=== PATIENT | female | born 1960 | race Caucasian/White ===

== ENCOUNTER → 2022-11-09 13:57 | Outpatient (BNVA) | payer OTHER, SELFPAY | PROVIDERS: PCP Nurse Practitioner; Visit Provider Specialist | DX: G56.03 Carpal tunnel syndrome, bilateral upper limbs (principal) | CPT/HCPCS: 95910; 95912 ==

== ENCOUNTER 2024-03-28 10:58 | Emergency (ER) | payer OTHER, SELFPAY ==
[2024-03-28 11:01] VITALS: BP 134/82; PULSE 89; RESP 16; TEMP 36.7; O2SAT 97
--- NOTE | 2024-03-28 11:05 | ECG_ITS ---
[facility] Test Date: 2024-03-28 Pat Name: Humera Lozada Department: Room: Gender: Female Hemodialysis Charge Nurse: : 1960 Requested By: Nghia Carrera Order Number: [id number] Raman MD: Chad Pearson M.D. Measurements Intervals [place] Rate: 84 P: 41 CA: 126 QRS: 43 QRSD: 70 T: 37 QT: 324 QTc: 383 Interpretive Statements SINUS RHYTHM LOW QRS VOLTAGE IN PRECORDIAL LEADS [QRS DEFLECTION < 1.0 mV IN CHEST LEADS] No previous ECG available for comparison Electronically Signed On 03-28-2024 22:56:06 CDT by Chad Pearson M.D. [email or web address]/store/NU/[id number] f
--- NOTE | 2024-03-28 11:20 | CT_ITS ---
WS: [id number] CT HEAD NONCONTRAST HISTORY: acute neuro changes TECHNIQUE: Contiguous axial imaging performed through the brain in 2.5 mm imaging. Bone and soft tiss ue windows. Sagittal and coronal reformats reviewed. All CT scans at [facility] use at least one of these dose optimization techniques: automated exposure control; mA and/or kV adjustment per pa tient size (includes targeted exams where dose is matched to clinical indication); or iterative recon struction. DLP: 989.55 mGy.cm COMPARISON: None available. No acute intracranial hemorrhage, midline shift or mass effect. Minimal atrophy and small vessel ischemic disease. No acute infarct or loss of rush-white matter diff erentiation. Ventricles: Normal size with no hydrocephalus. No inferior displacement of the cerebellar tonsils. Paranasal sinuses: As visualized are clear. Mastoid air cells: Well pneumatized. Calvarium and scalp: Skull is intact with no soft tissue edema or swelling. CT/CT head wo con* [id number] IMPRESSION: 1. No acute intracranial hemorrhage or edema. 2. Mild atrophy and mild small vessel ischemic disease.
[2024-03-28 11:24] VITALS: BP 134/84; PULSE 87; RESP 18; O2SAT 99
--- NOTE | 2024-03-28 11:32 | PC.PHAR ---
PT IS [facility] FOR [facility] LIST 03/28/24 11:30AM
[2024-03-28 11:38] LABS: Basophils # 0.1 10^3/uL (0.0-0.1); Basophils % 1.2 %; Eosinophils # 0.2 10^3/uL (0.0-0.8); Eosinophils % 2.7 %; Hematocrit 39.8 % (36-47); Lymphocytes # 2.1 10^3/uL (0.8-4.8); Lymphocytes % 24.2 %; Mean Corpuscular HGB Conc 32.7 g/dL (30-55); Mean Corpuscular Hemoglobin 31.9 pg (27-33); Mean Corpuscular Volume 97.5 fl (85-98); Mean Platelet Volume 9.4 fL (7.4-10.4); Monocytes # 0.5 10^3/uL (0.2-0.9); Neutrophils # 5.78 10^3/uL (1.8-7.7); Neutrophils % 65.6 %; Nucleated Red Blood Cells % 0 %; Platelet Count 275 10^3/cmm (157-399); Red Blood Count 4.08 10^6/uL (3.85-5.65); Red Cell Distribution Width 12.4 % (12.1-15.1); White Blood Count 8.83 10^3/uL (3.29-11.43)
[2024-03-28 11:54] LABS: Alanine Aminotransferase 18 U/L (0-33); Albumin Level 3.8 g/dL (3.5-5.2); Alkaline Phosphatase 107 U/L (35-105); Anion Gap 15.3 (5-19); Aspartate Amino Transferase 12 U/L (0-32); Blood Urea Nitrogen 13 mg/dL (8-23); Calcium 8.7 mg/dL (8.5-10.5); Carbon Dioxide 25 mmol/L (22-29); Chloride 103 mmol/L (98-107); Creatinine Clr Calc Pharmacy 79.0457; Glomerular Filtration Rate 72.7 mL/min (90-130); Glucose 105 mg/dL (65-115); Osmolality Calculated 288 mOsm/kg (285-295); Potassium 4.3 mmol/L (3.5-5.1); Sodium 139 mmol/L (136-145); Total Bilirubin 0.2 mg/dL (0.15-1.2); Total Protein 6.8 g/dL (6.6-8.7)
[2024-03-28 11:59] LABS: Add Urine Microscopic? YES; Bilirubin Urine Neg (Negative); Blood Urine 2+ (Negative); Glucose Urine UA Norm (Normal); Ketones Urine Negative (Negative); Leukocyte Esterase Urine Negative (Negative); Nitrate Urine Negative (Negative); Protein Urine Neg (Negative); Specific Gravity, Urine 1.015 (1.005-1.030); Urine Appearance SL Hazy (CLEAR); Urine Color Yellow (Yellow); Urobilinogen Urine Norm (Negative); pH Urine 6 (5-7)
[2024-03-28 12:04] LABS: Add Urine Culture? No; Bacteria Urine 1+ /hpf; Calcium Oxalate Crystals Urine 0-4 /hpf; Mucus Urine TRACE /hpf; Squamous Epithelial Cell Urine 0-4 /hpf (0-5); WBC Urine RARE /hpf (0-5)
--- NOTE | 2024-03-28 12:23 | ED_ITS ---
HPI - Neuro Symptoms/Deficit 2 General: Chief Complaint: Neuro Symptoms/Deficit Stated Complaint: [facility] sent, neuro symptoms Time Seen by Provider: 03/28/24 11:18 Source: patient Mode of arrival: ambulatory History of Present Illness: 61-year-old female presents emergency ro om with complaints of weakness and what she describes as brain fog difficulty concentrating this been going on for the last 3 to 4 days. Began Wednesday morning. Patient seen her primary care doctor [facility] the [facility] today and was referred to the ER because of concern of stroke or TIA. She is currently taking aspirin daily is not on any other platelet therapy nor is she on a statin at this time. She denies chest pain no recent fever sweats or chills or illness she denies difficulty with speech or swallowing. She had a brief period of time that she does not recall 3 days ago and these symptoms first occurred Onset (ago): day(s) (3) Associated symptoms: Deny chest pain, cough, diaphoresis, fevers/chills, headache(s), anorexia, malaise, nausea, seizures, short of breath, syncope, tingling, vertigo, vomiting or weakness Treatments Prior to Arrival: none Review of Systems 2 Const: Denies: malaise or diaphoresis Card: Denies: chest pain or syncope Resp: Denies: dyspnea GI: Denies: nausea or vomiting : Denies: dysuria, urinary frequency or urinary urgency Musc: Denies: neck pain or back pain Skin/Breast: Denies: rash Neuro: Denies: headache(s) or vertigo PFSH ED 2 PFSH: Social History (System 11/27/22 @ 10:48 by Nataliia Edmond) Smoking and tobacco/nicotine status: never used tobacco/nicotine Alcohol intake: never Substance/Drug Use: never NIH stroke score 2 NIHSS: Level Of Consciousness - 1a: 0 Level Of Consciousness Questions - 1b: Both Correct Level Of Consciousness Commands - 1c: Both Correct Best Gaze - 2: Normal Visual Dao - 3: No Visual Loss Facial Palsy - 4: N ormal Motor Arm Right - 5: No Drift Motor Arm Left - 5: No Drift Motor Leg Right - 6: No Drift Motor Leg Left - 6: No Drift Limb Ataxia - 7: A bsent Sensory - 8: Normal Best Language - 9: No Aphasia Dysarthia - 10: Normal Extinction And Inattention - 11: 0 Score: Total Score: 0 Physical Exam 2 Const: COMMON NORMALS: no acute distress GENERAL APPEARANCE: cooperative and comfortable ORIENTATION/CONSCIOUSNESS: Yes awake, Yes oriented to person, Yes oriented to place and Yes oriented to time HENMT: COMMON NORMALS: normocephalic, atraumatic and hearing grossly normal bilaterally HEAD & SCALP: normocephalic and atraumatic Resp: COMMON NORMALS: normal respiratory effort, No retractions, No use of accessory muscles and clear to auscultation bilaterally AUSCULTATION: clear to auscultation bilaterally Cardio: COMMON NORMALS: regular rate, regular rhythm and No murmurs present (Cardio) RATE: regular rate RHYTHM: regular rhythm GI: COMMON NORMALS: Soft to palpation and No hepatosplenomegaly present A USCULTATION: Yes normoactive bowel sounds PALPATION: Yes Soft to palpation, No Tenderness to palpation present (GI), No Guarding due to palpation present (GI) and Yes No hepatosplenomegaly present Extremity: COMMON NORMALS: normal to inspection, capillary refill normal, no clubbing, cyanosis or edema, no calf tenderness and no pedal edema Neuro: SENSORIUM/ORIENTATION: Yes oriented to person, Yes oriented to place and Yes oriented to time Skin: COMMON NORMALS: no rashes or lesions noted GENERAL SKIN EXAM: no rashes or lesions noted Course 2 Vital Signs: Vital signs: Vital Signs Temperature 98.0 F 03/28/24 11:01 Pulse Rate 82 03/28/24 12:43 Respiratory Rate 16 03/28/24 12:43 Blood Pressure 113/61 03/28/24 12:43 Pulse Oximetry 100 03/28/24 12:43 Oxygen Delivery Me thod Room Air 03/28/24 12:43 MDM - Neuro Symptoms/Deficit Medical Decision Making No deficits noted on exam NIH score 0 CT head without contrast negative. Will discharge home on dual plan to platelet therapy statin and set up outpatient further workup. Workup to include MRI head with and without echo carotids 48- hour Holter follow-up with neurology Medical Records I reviewed the patient's medical records. Lab Data I reviewed the patient's lab results. 03/28/24 11:28 03/28/24 11:[address] 03/28/24 11:20 IMPRESSION: 1. No acute intracranial hemorrhage or edema. 2. Mild atrophy and mild small vessel ischemic disease. Laboratory Results WBC 8.83 10^3/uL (3.29-11.43) 03/28/24 11:28 RBC 4.08 10^6/uL (3.85-5.65) 03/28/24 11:28 Hgb 13.00 g/dL (11.27-16.99) 03/28/24 11:28 Hct 39.8 % (36-47) 03/28/24 11:28 MCV 97.5 fl (85-98) 03/28/24 11:28 MCH 31.9 pg (27-33) 03/28/24 11:28 MCHC 32.7 g/dL (30-55) 03/28/24 11:28 RDW 12.4 % (12.1-15.1) 03/28/24 11:28 Plt Count 275 10^3/cmm (157-399) 03/28/24 11:28 MPV 9.4 fL (7.4-10.4) 03/28/24 11:28 Neut % (Auto) 65.6 % 03/28/24 11:28 Lymph % (Auto) 24.2 % 03/28/24 11:28 [place] % (Auto) 6.0 % 03/28/24 11:28 Eos % (Auto) 2.7 % 03/28/24 11:28 Baso % (Auto) 1.2 % 03/28/24 11:28 Neut # (Auto) 5.78 10^3/uL (1.8-7.7) 03/28/24 11:28 Lymph # (Auto) 2.1 10^3/uL (0.8-4.8) 03/28/24 11:28 [place] # (Auto) 0.5 10^3/uL (0.2-0.9) 03/28/24 11:28 Eos # (Auto) 0.2 10^3/uL (0.0-0.8) 03/28/24 11:28 Baso # (Auto) 0.1 10^3/uL (0.0-0.1) 03/28/24 11:28 Nucleated RBC % (auto) 0 % 03/28/24 11:28 Nucleated RBCs # 0.0 /100WBC 03/28/24 11:28 Sodium 139 mmol/L (136-145) 03/28/24 11:28 Potassium 4.3 mmol/L (3.5-5.1) 03/28/24 11:28 Chloride 103 mmol/L (98-107) 03/28/24 11:28 Carbon Dioxide 25 mmol/L (22-29) 03/28/24 11:28 Anion Gap 15.3 (5-19) 03/28/24 11:28 BUN 13 mg/dL (8-23) 03/28/24 11:28 Creatinine 0.8 mg/dL (0.5-0.9) 03/28/24 11:28 GFR Calculation 72.7 mL/min (90-130) L 03/28/24 11:28 Glucose 105 mg/dL (65-115) 03/28/24 11:28 Calculated Osmolality 288 mOsm/kg (285-295) 03/28/24 11:28 Calcium 8.7 mg/dL (8.5-10.5) 03/28/24 11:28 Total Bilirubin 0.2 mg/dL (0.15-1.2) 03/28/24 11:28 AST 12 U/L (0-32) 03/28/24 11:28 ALT 18 U/L (0-33) 03/28/24 11:28 Alkaline Phosphatase 107 U/L (35-105) H 03/28/24 11:28 Total Protein 6.8 g/dL (6.6-8.7) 03/28/24 11:28 Albumin 3.8 g/dL (3.5-5.2) 03/28/24 11:28 Globulin 3.0 g/dL (1.3-4.6) 03/28/24 11:28 Urine Color Yellow (Yellow) 03/28/24 11:43 Urine Appearance Sl hazy (CLEAR) A 03/28/24 11:43 Urine pH 6 (5-7) 03/28/24 11:43 Ur Specific [place] 1.015 (1.005-1.030) 03/28/24 11:43 Urine Protein Neg (Negative) 03/28/24 11:43 Urine Glucose (UA) Norm (Normal) 03/28/24 11:43 Urine Ketones Negative (Negative) 03/28/24 11:43 Urine Blood 2+ (Negative) H 03/28/24 11:43 Urine Nitrate Negative (Negative) 03/28/24 11:43 Urine Bilirubin Neg (Negative) 03/28/24 11:43 Urine Urobilinogen Norm mg/dL (Negative) 03/28/24 11:43 Ur Leukocyte Esterase Negative (Negative) 03/28/24 11:43 Urine RBC 5-10 /hpf (0-2) H 03/28/24 11:43 Urine WBC Rare /hpf (0-5) 03/28/24 11:43 Ur Squamous Epith Cells 0-4 /hpf (0-5) H 03/28/24 11:43 Calcium Oxalate Crystal 0-4 /hpf H 03/28/24 11:43 Amorphous Sediment Not Reportable 03/28/24 11:43 Urine Bacteria 1+ /hpf (NONE) H 03/28/24 11:43 Urine Mucus Trace /hpf 03/28/24 11:43 All radiology interpretation(s) finalized by discharge Discharge Plan Discharge Patient Disposition: Home Clinical Impression: TIA (transient ischemic attack) Condition: Stable Prescriptions: New atorvastatin 40 mg tablet 40 mg PO DAILY Qty: 30 0RF clopidogrel 75 mg tablet 75 mg PO DAILY Qty: 30 0RF No Action estradiol 2 mg tablet 2 mg PO DAILY thyroid (pork) [SCHOOL PROGRAM DIRECTOR Thyroid] 120 mg tablet 120 mg PO DAILY gabapentin 400 mg Capsule 400 mg PO BID cyanocobalamin (vitamin B-12) 1,000 mcg Tablet 1,000 mcg PO DAILY melatonin 3 mg Tablet 3 mg PO BEDTIME mirtazapine 30 mg Tablet 30 mg PO BEDTIME progesterone micronized 200 mg Capsule 400 mg PO BEDTIME meclizine 25 mg Tablet,Chewable 12.5 mg PO TID PRN (Reason: Nausea) testosterone 50 mg/5 gram (1 %) Gel 1 packet TRANSDERMAL QAM biotin 2,500 mcg Capsule 2,500 mcg PO DAILY Fish Oil 1,000 mg (120 mg-180 mg) Capsule 1 cap PO DAILY magnesium oxide 400 mg magnesium Tablet 400 mg PO DAILY Discharge Orders: Discharge ED (Routine); Ordered 03/28/24 Ordered By: Nghia Carey Referrals: Maryuri Byrd FNP [Primary Care Provider] - Discharge Diet: Usual diet Discharge Activity: Increase activity as tolerated Patient Instructions: Opioid Safety, Pain Management Activity Restrictions/Additional Instructions: Thank you for choosing [facility] for your healthcare needs today. Please realize this is an emergency room and that we are providing you with a medical screening exam and this may not be complete and all inclusive of all the testing and or work up that you may need to determine your ailment or severity of your illness. It is very important that you follow up as instructed or that you return to the Emergency Department should you have concerns or if your condition changes or worsens in any way. You are seen today with concerns of a TIA CT of the head was negative and exam does not show any signs for acute neurologic deficit. Recommend you increase to dual antiplatelet therapy, continue your aspirin and add Plavix 75 mg once a day. Additionally add a statin to further lower risk of TIA and stroke. Will set you up for outpatient testing including echocardiogram carotid duplex MRI of the head and 48-hour Holter monitor follow-up with neurology Coding Level of Care Code ED Transport Nurse for Jonel Arrieta
[2024-03-28 12:43] VITALS: BP 113/61; PULSE 82; RESP 16; O2SAT 100
== END 2024-03-28 12:57 | disposition home or self-care (01) ==
PROVIDERS: Emergency Provider Family Medicine; PCP Nurse Practitioner
DX: G45.9 Transient cerebral ischemic attack, unspecified (principal)
CPT/HCPCS: 36415; 70450; 80053; 81001; 85025; 93005; 99284

== ENCOUNTER 2024-05-05 11:06 | Emergency (ER) | payer OTHER, MEDICARE, SELFPAY ==
[2024-05-05 11:11] VITALS: BP 133/89; PULSE 84; RESP 14; TEMP 36.8; O2SAT 96
--- NOTE | 2024-05-05 11:16 | ECG_ITS ---
[facility] Test Date: 2024-05-05 Pat Name: Humera Lozada Department: Room: Gender: Female Bilingual Operator: : 1960 Requested By: Aline Carrera Order Number: [id number] Raman MD: Chad Pearson M.D. Measurements Intervals [place] Rate: 83 P: 34 [place]: 150 QRS: 13 QRSD: 73 T: 30 QT: 342 QTc: 403 Interpretive Statements SINUS RHYTHM LOW QRS VOLTAGE IN PRECORDIAL LEADS [QRS DEFLECTION < 1.0 mV IN CHEST LEADS] Compared to ECG 03/28/2024 11:05:39 Nonspecific T wave changes No significant changes Electronically Signed On 05-05-2024 19:05:04 CDT by Chad Pearson M.D. [email or web address].[employer]/store/NU/[id number] f
[2024-05-05 11:22] VITALS: BP 133/89; PULSE 87; O2SAT 98
--- NOTE | 2024-05-05 11:22 | ED_ITS ---
HPI - Chest Pain 2 General: Chief Complaint: Chest Pain Stated Complaint: [facility] sent, sob, chest pains Time Seen by Provider: 05/05/24 11:12 History of Present Illness: 63-year-old female who presents to the e mergency room from clinic with chest discomfort. She says this has been going on for months and she is just assumed it was indigestion. She was in clinic today and was having symptoms and so she was sent to the emergency room to rule out any kind of cardiac event. Currently chest pain-free. She describes a feeling of indigestion and tightness in her chest. Says it feels like her esophagus is squeezing Review of Systems 2 Narrative: Constitutional symptoms: Negative except as documented in HPI. Skin symptoms: Negative except as documented in HPI. Eye symptoms: Negative except as documented in HPI. ENMT symptoms: Negative except as documented in HPI. Respiratory symptoms: Negative except as documented in HPI. Cardiovascular symptoms: Negative except as documented in HPI. Gastrointestinal symptoms: Negative except as documented in HPI. Genitourinary symptoms: Negative except as documented in HPI. Musculoskeletal symptoms: Negative except as documented in HPI. Neurologic symptoms: Negative except as documented in HPI. Psychiatric symptoms: Negative except as documented in HPI. Endocrine symptoms: Negative except as documented in HPI. PFSH ED 2 PFSH: Social History Smoking and tobacco/nicotine status: never used tobacco/nicotine Alcohol intake: never Substance/Drug Use: never Physical Exam 2 Narrative: EXAM NARRATIVE: General: Alert, no acute distress. Skin: Warm, dry. Head: Normocephalic, atraumatic. Neck: Supple, trachea midline. Eye: Extraocular movements are intact. Ears, nose, mouth and throat: mucosa moist. Cardiovascular: Regular, Normal peripheral perfusion. Respiratory: Lungs are clear to auscultation, respirations are non-labored, breath sounds are equal, Symmetrical chest wall expansion. Gastrointestinal: Soft, Nontender, Non distended, Normal bowel sounds. Musculoskeletal: Normal ROM, no deformity. Neurological: Alert and oriented, No focal neurological deficit observed. Psychiatric: Cooperative, appropriate mood & affect. Course 2 Vital Signs: Vital signs: Vital Signs Temperature 98.3 F 05/05/24 11:11 Pulse Rate 87 05/05/24 11:22 Respiratory Rate 14 05/05/24 11:11 Blood Pressure 133/89 05/05/24 11:22 Pulse Oximetry 98 05/05/24 11:22 Oxygen Delivery Me thod Room Air 05/05/24 11:22 MDM - Chest Pain Medical Decision Making Differential diagnosis for patient with chest pain includes but is not limited to and based on the above HPI, review of systems and physical exam: Pneumonia. unstable angina. angina. Acute coronary syndrome / MS. Pulmonary embolism. Costochondritis / musculoskeletal. Pleurisy. Pericarditis. Esophageal spasm. Pancreatis. Cholecystitis. Workup: Lab work, chest X-ray and EKG ordered to evaluate, rule in and rule out above pathologies. EKG: Time 11:16 AM rate 83. Normal sinus rhythm, No ST-T changes, no ectopy, normal SD & QRS intervals, This was reviewed and interpreted by myself the ER physician at 11:17 AM Lab Review: Laboratory results were reviewed and interpreted by myself the emergency room physician. Lab work is unremarkable. No leukocytosis. No elevation in her troponin. Chest x-ray: No acute process. No infiltrate. No pneumothorax. No cardiomegaly. This was reviewed and interpreted by myself the ER physician. I reviewed the patient's medical record. Reexamination: Patient remained stable. No increased work of breathing. She has been chest pain-free. No altered mental status. No focal motor deficits. Assessment and plan: Noncardiac chest pain - Discharged home - Discussed plan with patient. Answered any questions. - Evaluation and treatment of this problem were appropriate in the emergency setting. Lab Data 05/05/24 11:15 05/05/24 11:15 Radiology Impressions Chest X-Ray 05/05/24 11:22 IMPRESSION: No acute findings. Laboratory Results WBC 9.54 10^3/uL (3.29-11.43) 05/05/24 11:15 RBC 4.18 10^6/uL (3.85-5.65) 05/05/24 11:15 Hgb 13.30 g/dL (11.27-16.99) 05/05/24 11:15 Hct 41.2 % (36-47) 05/05/24 11:15 MCV 98.6 fl (85-98) H 05/05/24 11:15 MCH 31.8 pg (27-33) 05/05/24 11:15 MCHC 32.3 g/dL (30-55) 05/05/24 11:15 RDW 12.5 % (12.1-15.1) 05/05/24 11:15 Plt Count 311 10^3/cmm (157-399) 05/05/24 11:15 MPV 9.6 fL (7.4-10.4) 05/05/24 11:15 Neut % (Auto) 62.2 % 05/05/24 11:15 Lymph % (Auto) 27.1 % 05/05/24 11:15 [place] % (Auto) 7.0 % 05/05/24 11:15 Eos % (Auto) 2.4 % 05/05/24 11:15 Baso % (Auto) 1.0 % 05/05/24 11:15 Neut # (Auto) 5.92 10^3/uL (1.8-7.7) 05/05/24 11:15 Lymph # (Auto) 2.6 10^3/uL (0.8-4.8) 05/05/24 11:15 [place] # (Auto) 0.7 10^3/uL (0.2-0.9) 05/05/24 11:15 Eos # (Auto) 0.2 10^3/uL (0.0-0.8) 05/05/24 11:15 Baso # (Auto) 0.1 10^3/uL (0.0-0.1) 05/05/24 11:15 Nucleated RBC % (auto) 0 % 05/05/24 11:15 Nucleated RBCs # 0.0 /100WBC 05/05/24 11:15 Sodium 136 mmol/L (136-145) 05/05/24 11:15 Potassium 4.7 mmol/L (3.5-5.1) 05/05/24 11:15 Chloride 101 mmol/L (98-107) 05/05/24 11:15 Carbon Dioxide 26 mmol/L (22-29) 05/05/24 11:15 Anion Gap 13.7 (5-19) 05/05/24 11:15 BUN 14 mg/dL (8-23) 05/05/24 11:15 Creatinine 0.8 mg/dL (0.5-0.9) 05/05/24 11:15 GFR Calculation 72.7 mL/min (90-130) L 05/05/24 11:15 Glucose 88 mg/dL (65-115) 05/05/24 11:15 Calculated Osmolality 282 mOsm/kg (285-295) L 05/05/24 11:15 Calcium 8.8 mg/dL (8.5-10.5) 05/05/24 11:15 Total Bilirubin 0.2 mg/dL (0.15-1.2) 05/05/24 11:15 AST 17 U/L (0-32) 05/05/24 11:15 ALT 19 U/L (0-33) 05/05/24 11:15 Alkaline Phosphatase 101 U/L (35-105) 05/05/24 11:15 Troponin T Baseline < 6 ng/L (0-10) 05/05/24 11:15 Total Protein 6.7 g/dL (6.6-8.7) 05/05/24 11:15 Albumin 4.2 g/dL (3.5-5.2) 05/05/24 11:15 Globulin 2.5 g/dL (1.3-4.6) 05/05/24 11:15 All radiology interpretation(s) finalized by discharge Discharge Plan Discharge Patient Disposition: Home Clinical Impression: Non-cardiac chest pain Condition: Stable Prescriptions: No Action estradiol 2 mg tablet 2 mg PO DAILY thyroid (pork) [SEPTIC CLEANER Thyroid] 120 mg tablet 120 mg PO DAILY gabapentin 400 mg Capsule 400 mg PO BID cyanocobalamin (vitamin B-12) 1,000 mcg Tablet 1,000 mcg PO DAILY melatonin 3 mg Tablet 3 mg PO BEDTIME mirtazapine 30 mg Tablet 30 mg PO BEDTIME progesterone micronized 200 mg Capsule 400 mg PO BEDTIME meclizine 25 mg Tablet,Chewable 12.5 mg PO TID PRN (Reason: Nausea) testosterone 50 mg/5 gram (1 %) Gel 1 packet TRANSDERMAL QAM biotin 2,500 mcg Capsule 2,500 mcg PO DAILY Fish Oil 1,000 mg (120 mg-180 mg) Capsule 1 cap PO DAILY magnesium oxide 400 mg magnesium Tablet 400 mg PO DAILY atorvastatin 40 mg tablet 40 mg PO DAILY Qty: 30 0RF clopidogrel 75 mg tablet 75 mg PO DAILY Qty: 30 0RF Discharge Orders: Discharge ED (Routine); Ordered 05/05/24 Ordered By: Aline Shane Referrals: Maryuri Byrd FNP [Primary Care Provider] - 4-7 days Discharge Diet: Usual diet Discharge Activity: Resume usual activity Patient Instructions: Noncardiac Chest Pain (ED) Activity Restrictions/Additional Instructions: I would recommend prompt follow-up with your primary care provider and consider further studies including a possible stress test if your PCP feels this is needed. Thank you for choosing [facility] for your healthcare needs today. Please realize this is an emergency room and that we are providing you with a medical screening exam and this may not be complete and all inclusive of all the testing and or work up that you may need to determine your ailment or severity of your illness. You have been screened and evaluated and felt safe for discharge. Health conditions do change or evolve sometimes and as such it is important that you follow up with your Primary Doctor to be re checked, 3-5 days is a general good time frame for follow up. You are always welcome to return to the ED for re assessment if your symptoms are worsening or you have new concerns Coding Level of Care Code ED Professor Of Environmental Studies for Jonel Arrieta
--- NOTE | 2024-05-05 11:22 | XRR_ITS ---
PROCEDURE INFORMATION: Exam: XR Chest Exam date and time: 05/05/2024 11:45 AM Age: 63 years old Clinical indication: Pain; Angina pectoris; Additional info: Chest pain TECHNIQUE: Imaging protocol: Radiologic exam of the chest. Views: 1 view. COMPARISON: No relevant prior studies available. FINDINGS: Lungs: Unremarkable. No consolidation or mass. Pleural spaces: Unremarkable. No pleural effusion. No pneumothorax. Heart/Mediastinum: Unremarkable. No cardiomegaly. Bones/joints: Unremarkable. XR/XR chest 1V portable [id number] IMPRESSION: No acute findings.
--- NOTE | 2024-05-05 11:25 | PC.PHAR ---
PT IS [facility] L[facility] 05/15/24 11:26PM
[2024-05-05 11:30] LABS: Basophils # 0.1 10^3/uL (0.0-0.1); Eosinophils # 0.2 10^3/uL (0.0-0.8); Eosinophils % 2.4 %; Hematocrit 41.2 % (36-47); Lymphocytes # 2.6 10^3/uL (0.8-4.8); Lymphocytes % 27.1 %; Mean Corpuscular HGB Conc 32.3 g/dL (30-55); Mean Corpuscular Hemoglobin 31.8 pg (27-33); Mean Corpuscular Volume 98.6 fl (85-98); Mean Platelet Volume 9.6 fL (7.4-10.4); Monocytes # 0.7 10^3/uL (0.2-0.9); Neutrophils # 5.92 10^3/uL (1.8-7.7); Neutrophils % 62.2 %; Nucleated Red Blood Cells % 0 %; Platelet Count 311 10^3/cmm (157-399); Red Blood Count 4.18 10^6/uL (3.85-5.65); Red Cell Distribution Width 12.5 % (12.1-15.1); White Blood Count 9.54 10^3/uL (3.29-11.43)
[2024-05-05 11:49] LABS: Troponin(5th) Baseline < 6 ng/L (0-10)
[2024-05-05 11:51] LABS: Alanine Aminotransferase 19 U/L (0-33); Albumin Level 4.2 g/dL (3.5-5.2); Alkaline Phosphatase 101 U/L (35-105); Anion Gap 13.7 (5-19); Aspartate Amino Transferase 17 U/L (0-32); Blood Urea Nitrogen 14 mg/dL (8-23); Calcium 8.8 mg/dL (8.5-10.5); Carbon Dioxide 26 mmol/L (22-29); Chloride 101 mmol/L (98-107); Creatinine Clr Calc Pharmacy 79.6719; Globulin 2.5 g/dL (1.3-4.6); Glomerular Filtration Rate 72.7 mL/min (90-130); Glucose 88 mg/dL (65-115); Osmolality Calculated 282 mOsm/kg (285-295); Potassium 4.7 mmol/L (3.5-5.1); Sodium 136 mmol/L (136-145); Total Bilirubin 0.2 mg/dL (0.15-1.2); Total Protein 6.7 g/dL (6.6-8.7)
[2024-05-05 12:34] VITALS: BP 133/89; PULSE 87; RESP 14; TEMP 36.8; O2SAT 98
== END 2024-05-05 12:36 | disposition home or self-care (01) ==
PROVIDERS: Emergency Provider Emergency Medicine; PCP Nurse Practitioner
DX: R07.89 Other chest pain (principal); Z79.02 Long term (current) use of antithrombotics/antiplatelets
CPT/HCPCS: 36415; 71045; 80053; 84484; 85025; 93005; 99285

== ENCOUNTER 2024-05-08 10:19 | Outpatient (CLI) | payer OTHER, MEDICARE, SELFPAY ==
--- NOTE | 2024-05-08 10:23 | MR_ITS ---
WS: [id number] MRI HEAD WITH CONTRAST TECHNIQUE: Sagittal T1, T2 axial, T2 axial FLAIR, axial susceptibility weighted imaging, axial diffus ion weighted images, and coronal T2 images were obtained. Pre and post-T1 axial and post T1 coronal i mages. ADC and FSPGR images. CLINICAL INFORMATION: TRANSIENT ISCHEMIC ATTACK COMPARISON: CT 03/28/2024 FINDINGS: No evidence of restricted diffusion to suggest acute ischemia. Ventricular system and basal cisterns are patent. Mild to moderate small vessel changes. Mild parenchymal volume loss. Normal posterior fos sa. Normal vascular flow voids at the skull base. No extra-axial fluid collections. No evidence of ma ss or mass effect. No hemosiderin on the susceptibility weighted images. Normal optic chiasm and pituitary infundibulum. Mild symmetric atrophy temporal lobes and hippocampal formations. Normal cavernous sinuses and Mecke l's cave. No abnormal gadolinium enhancement. Normal dural venous sinuses. MR/MR head wo/w con [id number] IMPRESSION: 1. No evidence of restricted diffusion to suggest acute ischemia. 2. Mild to moderate small vessel changes with mild parenchymal volume loss. Sm all vessel changes in the eun. 3. No abnormal gadolinium enhancement. 4. No hemosiderin on the susceptibility weighted images.
[2024-05-08] MEDS: gadobenate dimeglumine 20 mL vial IV (11:02)
== END 2024-05-08 10:20 | disposition home or self-care (01) ==
PROVIDERS: PCP Nurse Practitioner; Visit Provider Family Medicine
DX: I67.89 Other cerebrovascular disease (principal); G45.9 Transient cerebral ischemic attack, unspecified
CPT/HCPCS: 70553; A9577

== ENCOUNTER → 2024-07-05 13:52 | Outpatient (BNVA) | payer OTHER, SELFPAY | PROVIDERS: PCP Nurse Practitioner; Referring Provider Nurse Practitioner; Visit Provider Internal Medicine Cardiovascular Disease | DX: R07.9 Chest pain, unspecified (principal); Z86.73 Personal history of transient ischemic attack (TIA), and cerebral infarction without residual deficits; R94.31 Abnormal electrocardiogram [ECG] [EKG]; Z87.891 Personal history of nicotine dependence | CPT/HCPCS: 93005; 99204 ==

== ENCOUNTER → 2024-08-16 07:48 | Outpatient (BNVA) | payer OTHER, SELFPAY | PROVIDERS: PCP Nurse Practitioner; Referring Provider Nurse Practitioner; Visit Provider Specialist | DX: G45.4 Transient global amnesia (principal) | CPT/HCPCS: 99204; 99205 ==

== ENCOUNTER 2024-09-05 12:57 | Outpatient (CLI) | payer OTHER, SELFPAY ==
--- NOTE | 2024-09-05 13:02 | USCV_ITS ---
Humera Lozada Age: 64 Gender: F : 1960 Exam Date: 09/05/2024 13:27 Ordering Phys: Brett Jerez MD ([email or web address]) Technologist: FARRAH [place] [facility] [place]: [place] Risk Factors: Previous Vascular Surgery: Right Brachial BP: / Left Brachial BP: / Right Left Velocity (cm/s) Spectral Plaque Velocity (cm/s) Spectral Plaque Syst/Diast Broadening Syst/Diast Broadening 95.30/ 25.90 Prox CCA 132.70/ 37.40 95.30/ 33.20 Mid CCA 123.80/ 34.20 98.90/ 33.20 Distal CCA 97.10 / 31.40 74.50/ 24.40 Prox ICA 53.30 / 20.40 113.20/33.20 Mid ICA 78.90 / 28.80 97.60/ 37.50 Distal ICA 55.00 / 26.40 146.50 ECA 88.00 1.10 ICA/CCA 0.80 Antegrade Vertebral Antegrade 35.00/ 9.40 cm/s 36.20/ 13.00 cm/s Tri Subclavian Tri 103.8 200.8 0 0 FINDINGS Comparison: none available. No significant elevation of systolic or diastolic velocities. No significant amount of calcified plaque or intimal thickening identified. Waveforms are normal. Antegrade vertebral arteries. CONCLUSIONS Normal carotid doppler ultrasound. Dr. Ragini Brantley DO (Electronically Signed) Final Date: 05 September 2024 14:43 S
== END 2024-09-05 12:58 | disposition home or self-care (01) ==
LOC: RAD 12:58
PROVIDERS: PCP Nurse Practitioner; Visit Provider Internal Medicine Cardiovascular Disease
DX: G45.9 Transient cerebral ischemic attack, unspecified (principal)
CPT/HCPCS: 93880

== ENCOUNTER → 2025-01-17 13:01 | Outpatient (BNVA) | payer OTHER, SELFPAY | PROVIDERS: PCP Nurse Practitioner; Visit Provider Internal Medicine Cardiovascular Disease | DX: Z86.73 Personal history of transient ischemic attack (TIA), and cerebral infarction without residual deficits (principal) | CPT/HCPCS: 99214 ==

== ENCOUNTER → 2025-02-06 10:47 | Outpatient (BNVA) | payer OTHER, SELFPAY | PROVIDERS: PCP Nurse Practitioner; Visit Provider Specialist | DX: G45.4 Transient global amnesia (principal) | CPT/HCPCS: 99213 ==